=== PATIENT | female | born 1970 | race Caucasian/White ===

== ENCOUNTER 2023-06-15 08:35 | Outpatient (RCR) | payer MEDICARE ==
[~2023-06-15 08:35] MED LIST: AMBIEN10 MG PO; CARAFATE1 GM PO; CLARITIN10 MG PO; FAMOTIDINE20 MG PO; LEUCOVORIN CALCI5 MG PO; LYRICA25 MG PO; MELOXICAM15 MG PO; ROBAXIN-750750 MG PO; VALTREX500 MG PO
== END 2023-07-14 ==
LOC: PT 08:35
PROVIDERS: ATTEND Podiatrist Foot & Ankle Surgery
DX: R53.1 Weakness (principal); M76.72 Peroneal tendinitis, left leg; M76.71 Peroneal tendinitis, right leg; Z98.890 Other specified postprocedural states; R26.2 Difficulty in walking, not elsewhere classified
CPT/HCPCS: 20560; 20561

== ENCOUNTER 2023-08-17 09:15 | Outpatient (RCR) | payer MEDICARE | END 2023-09-13 | LOC: PT 09:15 | PROVIDERS: ATTEND Podiatrist Foot & Ankle Surgery | DX: R53.1 Weakness (principal); Z98.890 Other specified postprocedural states ==

== ENCOUNTER 2024-04-20 03:40 | Inpatient (IN) | payer MEDICARE ==
[2024-04-20] VITALS (20 sets, daily range): BP systolic 126–158; BP diastolic 83–132; PULSE 52–125; RESP 12–24; TEMP 98–98.3; O2SAT 97–100
[~2024-04-20] VITALS: Ht 165.1 cm; Wt 74.4 kg
[2024-04-20 04:06] LABS: BASOPHILS % 0.3 % (0.0-1.0); EOSINOPHILS % 0.3 % (0.0-6.0); HEMATOCRIT 44.7 % (34.2-44.1); HEMOGLOBIN 14.3 g/dL (12.0-16.0); LYMPHOCYTES # (AUTO) 1.6 (1.0-3.2); LYMPHOCYTES % 14.1 % (18.0-39.1); MEAN CORPUSCULAR HEMOGLOBIN 28.9 pg (28-32); MEAN CORPUSCULAR VOLUME 90.5 fL (81-99); MONOCYTES # (AUTO) 0.8 (0.2-0.8); MONOCYTES % 7.2 % (4.4-11.3); NEUTROPHILS # (AUTO) 8.9 (2.1-6.9); NEUTROPHILS % 77.7 % (38.7-80.0); PLATELET COUNT 322 x10e3/uL (140-360); RED BLOOD COUNT 4.94 x10e6/uL (3.6-5.1); WHITE BLOOD COUNT 11.51 x10e3/uL (4.8-10.8)
[2024-04-20] MEDS ORDERED: ONDANSETRON HCL INJ 2MG/ML 2ML 2 MG/ML VIAL IV PRN (04:15)
[2024-04-20] MEDS ORDERED: AMIODARONE HCL 150 MG/100 ML BAG IV ONE (04:15)
[2024-04-20] MEDS ORDERED: AMIODARONE 900MG 900 MG in Premix Bag 1 BAG IV SCH (04:15)
[2024-04-20] MEDS: SODIUM CHLORIDE 0.9% 1000ML 1,000 ML IV ONE (04:18)
[2024-04-20] MEDS ORDERED: ENOXAPARIN INJ 80 MG/0.8 ML SYR SC STA (04:18)
[2024-04-20 04:27] LABS: ALBUMIN 3.8 g/dL (3.5-5.0); ALBUMIN/GLOBULIN RATIO 1.4 (0.8-2.0); ANION GAP 15.2 mmol/L (8-16); BILIRUBIN,TOTAL 0.4 mg/dL (0.2-1.2); CALCIUM 9.6 mg/dL (8.4-10.2); CREATININE, SERUM 1.23 mg/dL (0.57-1.11); POTASSIUM 4.2 mmol/L (3.5-5.1); TOTAL PROTEIN 6.5 g/dL (6.5-8.1)
[2024-04-20 04:36] LABS: INR 0.84
[2024-04-20] MEDS: DIGOXIN INJ 0.25 MG/ML 2 ML AMP IV ONE (04:36)
[2024-04-20 04:37] LABS: PARTIAL THROMBOPLASTIN TIME 25.8 seconds (23.8-35.5)
[2024-04-20] MEDS: ENOXAPARIN INJ 80 MG/0.8 ML SYR SC STA (04:39)
[2024-04-20] MEDS: PROPAFENONE HCL 150 MG TAB PO ONE (05:47)
[2024-04-20] MEDS ORDERED: DIGOXIN INJ 0.25 MG/ML 2 ML AMP IV ONE ×2 (08:00→12:00)
[2024-04-20] MEDS: METOPROLOL TARTRATE 25 MG TAB PO SCH (08:24)
[2024-04-20] MEDS: PROPAFENONE HCL 150 MG TAB PO SCH (09:10)
[2024-04-20] MEDS ORDERED: PROPAFENONE HC150 MG PO (09:13)
[2024-04-20] MEDS ORDERED: ELIQUIS5 MG PO (09:13)
[2024-04-20] MEDS ORDERED: APIXABAN 5 MG TABLET PO SCH (18:00)
== END 2024-04-20 14:54 | disposition home or self-care (01) | DRG 310 ==
LOC: ER 03:48 → ERHOLD 04:09 → ICU 05:55
PROVIDERS: ADMIT Family Medicine; ATTEND Family Medicine
DX: I48.91 Unspecified atrial fibrillation (principal); N18.31 Chronic kidney disease, stage 3a; M32.9 Systemic lupus erythematosus, unspecified; M35.00 Sjogren syndrome, unspecified; M79.7 Fibromyalgia; I73.00 Raynaud's syndrome without gangrene; G90.1 Familial dysautonomia [Riley-Day]; Z79.01 Long term (current) use of anticoagulants; J45.909 Unspecified asthma, uncomplicated; K21.9 Gastro-esophageal reflux disease without esophagitis; M19.91 Primary osteoarthritis, unspecified site; Z86.16 Personal history of COVID-19; Z85.42 Personal history of malignant neoplasm of other parts of uterus; Z90.710 Acquired absence of both cervix and uterus; Z79.899 Other long term (current) drug therapy; Z88.5 Allergy status to narcotic agent; Z88.2 Allergy status to sulfonamides
CPT/HCPCS: 36415; 71045; 80053; 84484; 85025; 85610; 85730; 93005; 93306; 94799; 99284; J1160; J1650; J7030